=== PATIENT | male | born 1940 | race Caucasian/White ===

== ENCOUNTER → 2023-09-04 14:17 | Outpatient (REF) | payer MEDICARE, OTHER, SELFPAY | LOC: REG 14:17 | PROVIDERS: ATTENDING PHYSICIAN Specialist; FAMILY PHYSICIAN Student in an Organized Health Care Education/Training Program | DX: C61 Malignant neoplasm of prostate (principal) | CPT/HCPCS: 36415; 84153 ==

== ENCOUNTER → 2023-12-04 14:20 | Outpatient (REF) | payer MEDICARE, OTHER, SELFPAY ==
[2023-12-04 15:42] LABS: % Basophils 0.7 % (0-2); % Eosinophils 3.4 % (0-6); % Monocytes 9.9 % (1.7-9.3); Absolute Basophils 0.1 10^3/uL (0-0.2); Absolute Eosinophils 0.2 10^3/uL (0-0.7); Absolute Immature Granulocytes 0.1 10^3/uL (0-0.05); Absolute Lymphocytes 1.1 10^3/uL (1.2-3.4); Absolute Monocytes 0.7 10^3/uL (0.1-0.6); Absolute Neutrophils 4.6 10^3/uL (1.4-6.5); Hematocrit 43.7 % (39.0-52.0); Mean Corp Hgb Conc. 34.3 g/dL (33.0-37.0); Mean Corpuscular Hgb 35.3 pg (27.0-31.0); Mean Corpuscular Volume 102.8 fL (80.0-94.0); Mean Platelet Volume 10.9 fL (7.4-10.4); Nucleated Red Blood Cells % 0 % (-); Platelet Count 178 10^3/uL (130-400); Red Blood Cell Count 4.25 10^6/uL (4.70-6.10); Red Cell Dist. Width 13.2 % (11.5-14.5); White Blood Cell Count 6.7 10^3/uL (4.8-10.8)
[2023-12-04 15:53] LABS: Urine Albumin Trace (Neg - Trace); Urine Bilirubin 1+ (Negative); Urine Character Clear (Clear); Urine Color Yellow; Urine Glucose Negative (Negative); Urine Ketone Negative (Negative); Urine Leukocyte Negative (Negative); Urine Nitrite Negative (Negative); Urine Occult Blood Negative (Negative); Urine Specific Gravity 1.015 (<1.030); Urine Urobilinogen Negative (Neg - 1+)
[2023-12-04 15:57] LABS: ALT (SGPT) 16 U/L (0-50); AST (SGOT) 21 U/L (17-59); Albumin 3.9 g/dl (3.5-5.0); Alkaline Phosphatase 74 U/L (38-126); Blood Urea Nitrogen 27 mg/dl (9-20); Calcium 8.6 mg/dl (8.4-10.2); Carbon Dioxide 25 mmol/L (22-30); Chloride 105 mmol/L (98-107); Direct Bilirubin 0.3 mg/dl (0.0-0.4); Glucose 117 mg/dl (70-99); HDL Cholesterol 53 mg/dl; LDL Cholesterol, Calculated 70 mg/dl; Potassium 3.6 mmol/L (3.5-5.1); Sodium 140 mmol/L (135-145); Total Cholesterol 138 mg/dl (50-199); Total Protein 6.3 g/dl (6.3-8.2); Triglyceride 75 mg/dl (10-149); Very Low Density Lipoprotein 15 mg/dl (0-30); eGFR 55.19
[2023-12-04 16:34] LABS: TSH 0.61 uIU/ml (0.47-4.68)
== END ==
LOC: REG 14:20
PROVIDERS: ATTENDING PHYSICIAN Specialist; FAMILY PHYSICIAN Student in an Organized Health Care Education/Training Program; REFERRING PHYSICIAN Internal Medicine Cardiovascular Disease
DX: I10 Essential (primary) hypertension (principal); M86.9 Osteomyelitis, unspecified; C61 Malignant neoplasm of prostate
CPT/HCPCS: 36415; 80048; 80061; 80076; 81003; 82784; 83521; 84153; 84155; 84156; 84165; 84443; 85025; 86334; 86335

== ENCOUNTER → 2024-03-01 15:10 | Outpatient (REF) | payer MEDICARE, OTHER, SELFPAY ==
[2024-03-01 16:31] LABS: PSA, Total - Diagnostic 5.55 ng/ml (0.0-4.0)
== END ==
LOC: REG 15:10
PROVIDERS: ATTENDING PHYSICIAN Specialist; FAMILY PHYSICIAN Student in an Organized Health Care Education/Training Program
DX: C61 Malignant neoplasm of prostate (principal)
CPT/HCPCS: 36415; 84153

== ENCOUNTER → 2024-07-05 15:39 | Outpatient (REF) | payer MEDICARE, OTHER, SELFPAY ==
[2024-07-05 17:13] LABS: ALT (SGPT) 26 U/L (0-50); AST (SGOT) 23 U/L (17-59); Albumin 3.8 g/dl (3.5-5.0); Alkaline Phosphatase 73 U/L (38-126); Blood Urea Nitrogen 32 mg/dl (9-20); Calcium 9.1 mg/dl (8.4-10.2); Carbon Dioxide 27 mmol/L (22-30); Chloride 103 mmol/L (98-107); Glucose 101 mg/dl (70-99); Potassium 4.5 mmol/L (3.5-5.1); Sodium 140 mmol/L (135-145); Total Bilirubin 0.6 mg/dl (0.2-1.3); Total Protein 6.2 g/dl (6.3-8.2); eGFR 50.18
[2024-07-05 17:43] LABS: PSA, Total - Diagnostic 5.14 ng/ml (0.0-4.0)
== END ==
LOC: REG 15:39
PROVIDERS: ATTENDING PHYSICIAN Specialist; REFERRING PHYSICIAN Internal Medicine Cardiovascular Disease
DX: C61 Malignant neoplasm of prostate (principal); I10 Essential (primary) hypertension; E78.5 Hyperlipidemia, unspecified; I48.21 Permanent atrial fibrillation
CPT/HCPCS: 36415; 80053; 84153

== ENCOUNTER → 2024-07-29 15:09 | Outpatient (REF) | payer MEDICARE, OTHER, SELFPAY | LOC: RCS 15:09 | PROVIDERS: ATTENDING PHYSICIAN Internal Medicine Cardiovascular Disease | DX: I50.30 Unspecified diastolic (congestive) heart failure (principal) | CPT/HCPCS: 93306 ==

== ENCOUNTER → 2024-09-30 16:22 | Outpatient (REF) | payer MEDICARE, OTHER, SELFPAY ==
[2024-09-30 18:38] LABS: PSA, Total - Diagnostic 4.88 ng/ml (0.0-4.0)
== END ==
LOC: REG 16:22
PROVIDERS: ATTENDING PHYSICIAN Specialist; FAMILY PHYSICIAN Student in an Organized Health Care Education/Training Program
DX: C61 Malignant neoplasm of prostate (principal)
CPT/HCPCS: 36415; 84153

== ENCOUNTER → 2024-12-20 14:55 | Outpatient (REF) | payer MEDICARE, OTHER, SELFPAY ==
[2024-12-20 16:07] LABS: % Basophils 0.4 % (0-2); % Eosinophils 1.7 % (0-6); % Immature Granulocytes 1.3 % (0-0.5); % Lymphocytes 19.6 % (20.5-51.1); % Monocytes 12.5 % (1.7-9.3); % Neutrophils 64.5 % (42.2-75.2); Absolute Eosinophils 0.1 10^3/uL (0-0.7); Absolute Immature Granulocytes 0.1 10^3/uL (0-0.05); Absolute Lymphocytes 1.6 10^3/uL (1.2-3.4); Absolute Neutrophils 5.3 10^3/uL (1.4-6.5); Mean Corpuscular Hgb 36.6 pg (27.0-31.0); Mean Corpuscular Volume 107.5 fL (80.0-94.0); Mean Platelet Volume 10.5 fL (7.4-10.4); Nucleated Red Blood Cells % 0 % (-); Platelet Count 143 10^3/uL (130-400); Red Blood Cell Count 4.65 10^6/uL (4.70-6.10); Red Cell Dist. Width 13.5 % (11.5-14.5); White Blood Cell Count 8.2 10^3/uL (4.8-10.8)
[2024-12-20 16:28] LABS: Blood Urea Nitrogen 31 mg/dl (9-20); Carbon Dioxide 22 mmol/L (22-30); Chloride 107 mmol/L (98-107); Glucose 92 mg/dl (70-99); Potassium 3.7 mmol/L (3.5-5.1); Sodium 140 mmol/L (135-145); eGFR 46.19
[2024-12-20 16:37] LABS: NT-proBNP 587 pg/ml
== END ==
LOC: RAD 14:55
PROVIDERS: ATTENDING PHYSICIAN Internal Medicine
DX: R06.02 Shortness of breath (principal); R05.1 Acute cough; R09.02 Hypoxemia
CPT/HCPCS: 36415; 71046; 80048; 83880; 85025

== ENCOUNTER → 2024-12-27 17:06 | Outpatient (REF) | payer MEDICARE, OTHER, SELFPAY ==
[2024-12-27 18:29] LABS: PSA, Total - Diagnostic 5.09 ng/ml (0.0-4.0)
== END ==
LOC: REG 17:06
PROVIDERS: ATTENDING PHYSICIAN Specialist; FAMILY PHYSICIAN Student in an Organized Health Care Education/Training Program
DX: C61 Malignant neoplasm of prostate (principal)
CPT/HCPCS: 36415; 84153

== ENCOUNTER → 2025-03-21 16:36 | Outpatient (REF) | payer MEDICARE, OTHER, SELFPAY ==
[2025-03-21 18:27] LABS: PSA, Total - Diagnostic 5.16 ng/ml (0.0-4.0)
== END ==
LOC: REG 16:36
PROVIDERS: ATTENDING PHYSICIAN Specialist
DX: C61 Malignant neoplasm of prostate (principal)
CPT/HCPCS: 36415; 84153

== ENCOUNTER → 2025-05-23 08:03 | Outpatient (REF) | payer MEDICARE, OTHER, SELFPAY | LOC: WOUND 08:03 | PROVIDERS: ATTENDING PHYSICIAN Surgery; FAMILY PHYSICIAN Student in an Organized Health Care Education/Training Program | DX: L97.812 Non-pressure chronic ulcer of other part of right lower leg with fat layer exposed (principal); I48.21 Permanent atrial fibrillation; N18.32 Chronic kidney disease, stage 3b; R97.20 Elevated prostate specific antigen [PSA]; I12.9 Hypertensive chronic kidney disease with stage 1 through stage 4 chronic kidney disease, or unspecified chronic kidney disease | CPT/HCPCS: 11042; 99203 ==

== ENCOUNTER 2025-05-30 13:43 | Outpatient (REF) | payer MEDICARE, OTHER, SELFPAY | END 2025-05-30 23:59 | disposition home or self-care (01) | LOC: WOUND 13:43 | PROVIDERS: ATTENDING PHYSICIAN Surgery; FAMILY PHYSICIAN Student in an Organized Health Care Education/Training Program | DX: L97.812 Non-pressure chronic ulcer of other part of right lower leg with fat layer exposed (principal); I48.21 Permanent atrial fibrillation; N18.32 Chronic kidney disease, stage 3b; R97.20 Elevated prostate specific antigen [PSA]; Z79.01 Long term (current) use of anticoagulants; I12.9 Hypertensive chronic kidney disease with stage 1 through stage 4 chronic kidney disease, or unspecified chronic kidney disease | CPT/HCPCS: 11042 ==

== ENCOUNTER 2025-06-05 12:42 | Outpatient (REF) | payer MEDICARE, OTHER, SELFPAY | END 2025-06-05 23:59 | disposition home or self-care (01) | LOC: WOUND 12:42 | PROVIDERS: ATTENDING PHYSICIAN Surgery; FAMILY PHYSICIAN Student in an Organized Health Care Education/Training Program | DX: L97.812 Non-pressure chronic ulcer of other part of right lower leg with fat layer exposed (principal); I48.21 Permanent atrial fibrillation; N18.32 Chronic kidney disease, stage 3b; R97.20 Elevated prostate specific antigen [PSA]; I10 Essential (primary) hypertension; Z79.01 Long term (current) use of anticoagulants | CPT/HCPCS: 11042 ==

== ENCOUNTER 2025-06-23 11:01 | Outpatient (REF) | payer MEDICARE, OTHER, SELFPAY | END 2025-06-23 23:59 | disposition home or self-care (01) | LOC: WOUND 11:01 | PROVIDERS: ATTENDING PHYSICIAN Registered Nurse; FAMILY PHYSICIAN Student in an Organized Health Care Education/Training Program | DX: L97.812 Non-pressure chronic ulcer of other part of right lower leg with fat layer exposed (principal); I48.21 Permanent atrial fibrillation; N18.32 Chronic kidney disease, stage 3b; R97.20 Elevated prostate specific antigen [PSA]; I10 Essential (primary) hypertension; Z79.01 Long term (current) use of anticoagulants | CPT/HCPCS: 97597 ==

== ENCOUNTER → 2025-06-23 11:37 | Outpatient (REF) | payer MEDICARE, OTHER, SELFPAY ==
[2025-06-23 13:21] LABS: PSA, Total - Diagnostic 5.08 ng/ml (0.0-4.0)
== END ==
LOC: REG 11:37
PROVIDERS: ATTENDING PHYSICIAN Specialist; FAMILY PHYSICIAN Student in an Organized Health Care Education/Training Program
DX: C61 Malignant neoplasm of prostate (principal)
CPT/HCPCS: 36415; 84153

== ENCOUNTER 2025-07-14 11:31 | Outpatient (REF) | payer MEDICARE, OTHER, SELFPAY | END 2025-07-14 23:59 | disposition home or self-care (01) | LOC: WOUND 11:31 | PROVIDERS: ATTENDING PHYSICIAN Registered Nurse; FAMILY PHYSICIAN Student in an Organized Health Care Education/Training Program | DX: L97.812 Non-pressure chronic ulcer of other part of right lower leg with fat layer exposed (principal); I48.21 Permanent atrial fibrillation; N18.32 Chronic kidney disease, stage 3b; R97.20 Elevated prostate specific antigen [PSA]; I12.9 Hypertensive chronic kidney disease with stage 1 through stage 4 chronic kidney disease, or unspecified chronic kidney disease; Z79.01 Long term (current) use of anticoagulants | CPT/HCPCS: 99213 ==